=== PATIENT | female | born 1970 | race African-American/Black ===

== ENCOUNTER 2017-08-16 10:30 | Emergency (ER) | payer BC, OTHER ==
[~2017-08-16] VITALS: Ht 149.9 cm; Wt 49.8 kg
[2017-08-16] MEDS ORDERED: KETOROLAC 30 MG/1 ML ONE (11:24)
[2017-08-16] MEDS ORDERED: OXYcodone/APAP 5/325MG TABLET ONE (11:24)
[2017-08-16] MEDS ORDERED: OXYcodone/APAP 5/325MG TABLET PO ONE (11:30)
[2017-08-16] MEDS ORDERED: KETOROLAC 30 MG/1 ML IM ONE (11:30)
[2017-08-16 12:31] VITALS: BP 112/61
== END 2017-08-16 12:36 | disposition home or self-care (01) ==
LOC: ED 11:41
DX: M25.551 Pain in right hip (principal)
CPT/HCPCS: 73502; 93971; 96372; 99284; J1885